=== PATIENT | male | born 1960 | race Caucasian/White ===

== ENCOUNTER 2018-09-25 15:11 | Emergency (ER) | payer MEDICAID ==
[~2018-09-25] VITALS: Ht 170.2 cm; Wt 70.0 kg
--- NOTE | 2018-09-25 15:33 | NUR ---
PT BROUGHT IN BECAUSE S/O OF 30 YEARS STATES THAT HE HAS BEEN ACTING WEIRD FOR 2 WEEKS. POOR HISTORIAN. 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 PT IS AGITATED AND CONTINUING TO TRY TO CRAWL OUT OF BED. PT FALLS DAILY. RESTRAINT VEST APPLIED FOR MEDICAL REASON TO PROTECT PT. PT NONVERBAL BASICALLY.
[2018-09-25] MEDS ORDERED: CITA20TA6 PO (15:42)
[2018-09-25] MEDS ORDERED: HALOPERIDOL 5 MG/ML ONE (15:44)
[2018-09-25] MEDS ORDERED: HALOPERIDOL 5 MG/ML IM PRN (16:00)
[2018-09-25 16:47] LABS: BASOPHILS # (AUTO) 0.03 x10^3/uL (0-0.1); BASOPHILS % (AUTO) 0 % (0-1); EOSINOPHILS # (AUTO) 0.01 x10^3/uL (0-0.4); EOSINOPHILS % (AUTO) 0 % (1-7); LYMPHOCYTES # (AUTO) 2.46 x10^3/uL (1-3.4); LYMPHOCYTES % (AUTO) 28 % (22-44); MD NO; MEAN CORPUSCULAR VOLUME 99.8 fL (81-97); MEAN PLATELET VOLUME 7.8 fL (7.4-10.4); MONOCYTES # (AUTO) 0.59 x10^3/uL (0.2-0.8); MONOCYTES % (AUTO) 7 % (2-9); NEUTROPHILS # (AUTO) 5.59 x10^3/uL (1.8-6.8); NEUTROPHILS % (AUTO) 64 % (42-75); PLATELET COUNT 148 x10^3/uL (130-400); RED BLOOD COUNT 4.01 x10^6/uL (4.38-5.82); RED CELL DISTRIBUTION WIDTH 13.1 % (9.4-14.8)
[2018-09-25 16:59] LABS: ALANINE AMINOTRANSFERASE 166 U/L (12-78); ALBUMIN 3.2 g/dL (3.4-5.0); ANION GAP 9 mmol/L (5-15); CALCIUM 8.3 mg/dL (8.5-10.1); CHLORIDE 110 mmol/L (98-107); CREATININE 0.63 mg/dL (0.7-1.3)
[2018-09-25 17:01] LABS: ALKALINE PHOSPHATASE 142 U/L (45-117); BILIRUBIN,TOTAL 0.8 mg/dL (0.2-1.0); SALICYLATE LEVEL < 1.7 mg/dL (2.8-20.0); TOTAL PROTEIN 7.4 g/dL (6.4-8.2)
[2018-09-25 17:02] LABS: ACETAMINOPHEN < 2 mcg/mL (10-30)
--- NOTE | 2018-09-25 17:29 | NUR ---
Cleaned pts bed removed soiled underpants new sheets placed, warm blankets give. Trial release from vest restraint and pt tried again crawling OOB. Pt is cooperative not kicking legs every where just rocking jerks. Pt spoke and stated he feels better. Iv established waiting admit.
[2018-09-25] MEDS ORDERED: ZIPRASIDONE 20MG CAPSULE PO PRN (18:00)
[2018-09-25] MEDS ORDERED: IBUPROFEN 600 MG TABLET PO PRN (18:00)
[2018-09-25] MEDS ORDERED: ONDANSETRON ODT 4 MG PO PRN (18:00)
--- NOTE | 2018-09-25 18:53 | NUR ---
TELE RODY ON TV TALKING WITH PT AND FAMILY. SITTER AT BS
--- NOTE | 2018-09-25 19:03 | NUR ---
DR. PATEL CALLED BACK AND HE STATES PT IS DISABLED AND NEEDS A PSYCH ADMISSON
--- NOTE | 2018-09-25 20:00 | NUR ---
PT IS OUT OF VEST RESTRAINT, COOPERATIVE SITTER WILL REMIND PT TO STAY IN BED. CHARTING COMPLETE
--- NOTE | 2018-09-25 20:24 | NUR ---
STRAIGHT CATH UA DONE SENT TO LAB. PT RESTING WATCHING TV
[2018-09-25 20:38] LABS: AMPHETAMINE SCREEN, URINE Negative (Negative); BARBITURATE SCREEN, URINE Negative (Negative); BENZODIAZEPINE SCREEN, URINE Negative (Negative); CANNABINOID SCREEN, URINE Negative (Negative); COCAINE SCREEN, URINE Negative (Negative); METHADONE SCREEN, URINE Negative (Negative); OPIATE SCREEN, URINE Negative (Negative)
--- NOTE | 2018-09-25 20:48 | NUR ---
REPORT GIVEN FROM AMIRA ARMENDARIZ
--- NOTE | 2018-09-25 20:56 | NUR ---
REPORT TO MARGARITO COLLIER
[2018-09-25 21:02] LABS: MICROSCOPIC NOT IND
[2018-09-25 21:03] LABS: CULTURE INDICATED? NO
--- NOTE | 2018-09-25 21:21 | NUR ---
tp: faxed pts packet to [facility]
--- NOTE | 2018-09-25 21:54 | NUR ---
PT RESTING IN CORREA. SITER AT DOOR. AT DOOR. NO ACUTE DISTRESS NOTED. VS STABLE. WILL CONTINUE TO MONITOR.
--- NOTE | 2018-09-25 22:19 | NUR ---
tp: serafin from [facility] called to notify that pt is declined at this time unless he is able to self pay.
--- NOTE | 2018-09-25 22:31 | NUR ---
PT MOVED TO ROOM 38. SITTER AT DOOR. PT'S VS ARE STABLE. 3 BAGS OF BELONGINGS LOCKED UP. GIRLFRIEND TOOK PT'S HOME MEDICATIONS FOR HOME. PT'S WHEELCHAIR IN ROOM. WILL CONTINUE TO MONITOR.
--- NOTE | 2018-09-25 23:16 | NUR ---
pt resting in room. vs stable. sitter at door. no acute distress noted. will continue to monitor.
--- NOTE | 2018-09-25 23:23 | NUR ---
pt drank one cup of orange juice. Pt asked if he wants more juice or something to eat or drink. Pt replied, "No that is okay." sitter at door. no acute distress noted. girlfriend went home. call light in place. will continue to monitor.
--- NOTE | 2018-09-26 00:22 | NUR ---
TASK RN: PT SITTING UP IN HOSPITAL BED, NAD NOTED. BP/SPO2 MONITORING IN PLACE. SITTER AT DOORWAY FOR OBS.
--- NOTE | 2018-09-26 00:30 | NUR ---
REPORT GIVEN TO AMIRA LINDQUIST
--- NOTE | 2018-09-26 00:52 | NUR ---
PT RESTING ON GURNEY WATCHING TV, NAD, ROOM SECURED, SITTER AT DOORWAY FOR CONTINOUS MONITORING.
--- NOTE | 2018-09-26 02:15 | NUR ---
PT RESTING IN BED WATCHING TV, DENIES NEEDS AT THIS TIME, DESIREE ODELL REMAINS AT DOORWAY FOR CONTINOUS MONITORING
--- NOTE | 2018-09-26 03:04 | NUR ---
PT SITTING UP WATCHING TV, PT CHECKED FOR INCONTINENCE, PT REMAINS DRY. DENIES FURTHER NEEDS, SITTER AT DOORWAY FOR MONITORING
--- NOTE | 2018-09-26 04:08 | NUR ---
PT RESTING IN BED WATCHING TV, DENIES NEEDS AT THIS TIME, DESIREE ODELL REMAINS AT DOORWAY FOR CONTINOUS MONITORING
--- NOTE | 2018-09-26 05:01 | NUR ---
PT SITTING UP WATCHING TV, PT CHECKED FOR INCONTINENCE, PT REMAINS DRY. DENIES NEEDS, SITTER AT DOORWAY FOR MONITORING
[2018-09-26 05:22] LABS: INTERNATIONAL NORMALIZED RATIO 1.14 (0.93-1.1)
[2018-09-26 05:26] LABS: ALBUMIN 3.3 g/dL (3.4-5.0); ANION GAP 12 mmol/L (5-15); CALCIUM 8.7 mg/dL (8.5-10.1); CHLORIDE 110 mmol/L (98-107)
[2018-09-26 05:28] LABS: ALANINE AMINOTRANSFERASE 183 U/L (12-78); ALKALINE PHOSPHATASE 139 U/L (45-117); CREATININE 0.57 mg/dL (0.7-1.3); TOTAL PROTEIN 7.8 g/dL (6.4-8.2)
--- NOTE | 2018-09-26 06:00 | NUR ---
PT SITTING UP WATCHING TV, NAD, DENIES NEEDS, SITTER REMAINS AT DOORWAY FOR CONTINOUS MONITORING.
--- NOTE | 2018-09-26 07:06 | NUR ---
REPORT GIVEN TO AMIRA ROBERTSON
--- NOTE | 2018-09-26 07:13 | NUR ---
REPORT FROM AMEENA COLLIER
--- NOTE | 2018-09-26 07:30 | NUR ---
PT RESTING IN BED. WHEELCHAIR IN ROOM. PT ON BP AND O2 MONITORING. PT IN HOSPITAL BED. SITTER IN HALLWAY.
--- NOTE | 2018-09-26 07:36 | NUR ---
PT WATCHING TV AT THIS TIME. PT CHECKED AND PADS ARE DRY AT THIS TIME.
[2018-09-26] MEDS ORDERED: CITALOPRAM 20 MG TABLET ONE (08:05)
[2018-09-26] MEDS ORDERED: CITALOPRAM 20 MG TABLET PO SCH (09:00)
--- NOTE | 2018-09-26 09:00 | NUR ---
SPOKE WITH LEILA AT [facility]. DUE TO PT REFUSING TO SPEAK OR ANSWER ALL QUESTIONS WE ARE UNABLE TO DETERMINE IF HE CAN SELF-PAY. PER LEILA AT THIS TIME THEY WILL REMOVE HIM AND WE WERE INFORMED THAT IF THERE ARE ANY CHANGES TO SEND THE REFERAL AGAIN.
--- NOTE | 2018-09-26 09:48 | NUR ---
PT IN BED AT THIS TIME. RESPS EVEN AND UNLABORED. BREAKFAST TRAY COMSUMED IN ITS ENTIRITY.
--- NOTE | 2018-09-26 10:26 | NUR ---
PT AWAKE IN BED. STILL NOT REPONDING TO ANY QUESTIONS. RESPS EVEN AND UNLABORED. PT FOUND TO HAVE URINATED THE BED. ABSORBANT PADS AND SHEETS CHANGED AT THIS TIME.
--- NOTE | 2018-09-26 10:49 | NUR ---
REPORT RECEIVED FROM AILYN COLLIER, ASSUMING CARE OF THIS PT. PT CURRENTLY RESTING IN ROOM WITH EYES CLOSED. ELEN ODELL. SITTER IN [place] FOR CONTINUOUS MONITORING.
--- NOTE | 2018-09-26 12:12 | NUR ---
SPOKE WITH 3E. DR Morrison RECOMMENDS TO BE MONITORED ON A MEDICAL AND REASSESSED TOMORROW. CONCERNED WITH THE CONFUSION.
[2018-09-26 12:37] VITALS: BP 96/63
--- NOTE | 2018-09-26 12:38 | NUR ---
PT RESTING IN BED WITH LIGHTS DIMMED. VSS. NO DISTRESS NOTED.
--- NOTE | 2018-09-26 12:40 | NUR ---
SPOKE WITH HOSPITALIST IN REGARDS TO RECOMMENDATION FOR MEDICAL ADMIT, MD STATES ITS ACUTE PSYCHOSIS AND THERE IS NO NEED TO ADMIT THIS PT TO MEDICAL, TESTS DONE TO R/O OTHER ISSUES. THROUGHPUT TO BE NOTIFIED
--- NOTE | 2018-09-26 12:46 | NUR ---
3E CONTACTED AND UPDATED ON HOSPITALIST ADMIT POSITION, AWAITING CALL BACK AT THIS TIME WITH BED ASSIGNMENT
--- NOTE | 2018-09-26 12:49 | NUR ---
PT TO MRI.
--- NOTE | 2018-09-26 13:35 | NUR ---
PT BACK FROM MRI. CURRENTLY EATING LUNCH DIET TRAY. PT STATES NO NEEDS AT THIS TIME. ELEN ODELL. SITTER IN [place] FOR CONTINUOUS MONITORING. WILL CONTINUE TO MONITOR
--- NOTE | 2018-09-26 14:36 | NUR ---
MRI CALLED TO F/U ON DELAY IN READ, TECH STATES WILL PUSH THROUGH TO BE READ NOW
--- NOTE | 2018-09-26 14:41 | NUR ---
PT RESTING IN ROOM. PT ATE ENTIRE DIET TRAY AND DRANK ALL FLUIDS. VSS. NO NEEDS AT THIS TIME.
--- NOTE | 2018-09-26 15:55 | NUR ---
PT RESTING ON BED. RR EVEN AND UNLABORED. PT IS CALM AND COOPERATIVE ATT. DENIES NEEDS OR PAIN ATT. PT'S ROOM SECURED. SITTER OUTSIDE OF ROOM FOR SAFETY
--- NOTE | 2018-09-26 17:57 | NUR ---
report given to sen lemos
== END 2018-09-27 02:56 | disposition other institution (70) ==
LOC: ED 16:24 → UNDOADMOB 17:34 → EDIP 17:34 → ED 09-27 02:56
DX: F23 Brief psychotic disorder (principal); R74.0 Nonspecific elevation of levels of transaminase and lactic acid dehydrogenase [LDH]; F31.9 Bipolar disorder, unspecified
CPT/HCPCS: 36415; 70551; 76700; 80053; 80074; 80307; 80329; 81003; 82140; 82607; 84443; 85025; 85610; 87521; 96372; 99284; J1630; G0480

== ENCOUNTER 2018-09-26 17:42 | Inpatient (IN) | payer MEDICAID ==
[~2018-09-26] VITALS: Ht 177.8 cm; Wt 61.4 kg
[~2018-09-26 17:42] MED LIST: CITA20TA6 PO
[2018-09-26] MEDS ORDERED: ONDANSETRON ODT 4 MG PO PRN (18:00)
[2018-09-26] MEDS ORDERED: BISACODYL 10 MG SUPP PR PRN (18:00)
[2018-09-26] MEDS ORDERED: POLYETHYLENE GLYCOL 17 GM PACKET PO PRN (18:00)
[2018-09-26] MEDS ORDERED: DOCUSATE 100 MG CAPSULE PO PRN (18:00)
[2018-09-26] MEDS ORDERED: ACETAMINOPHEN 325 MG TABLET PO PRN ×2 (18:00→20:00)
[2018-09-26 18:03] VITALS: BP 119/79
[2018-09-26] MEDS ORDERED: PLEASE ENTER HEIGHT AND WEIGHT MC SCH (18:30)
[2018-09-26 18:42] VITALS: BP 119/79
[2018-09-26 20:38] VITALS: BP 111/73
[2018-09-27 07:44] VITALS: BP 102/72
[2018-09-27] MEDS: SENNA/DOCUSATE TABLET PO SCH (08:30)
[2018-09-27 09:11] LABS: BASOPHILS # (AUTO) 0.06 x10^3/uL (0-0.1); BASOPHILS % (AUTO) 1 % (0-1); EOSINOPHILS # (AUTO) 0.09 x10^3/uL (0-0.4); EOSINOPHILS % (AUTO) 1 % (1-7); LYMPHOCYTES # (AUTO) 1.83 x10^3/uL (1-3.4); LYMPHOCYTES % (AUTO) 29 % (22-44); MD NO; MEAN CORPUSCULAR HEMOGLOBIN 34.4 pg (27.5-34.5); MEAN CORPUSCULAR HGB CONC 34.1 g/dL (33.2-36.2); MEAN CORPUSCULAR VOLUME 100.9 fL (81-97); MEAN PLATELET VOLUME 7.6 fL (7.4-10.4); MONOCYTES # (AUTO) 0.61 x10^3/uL (0.2-0.8); MONOCYTES % (AUTO) 10 % (2-9); NEUTROPHILS # (AUTO) 3.69 x10^3/uL (1.8-6.8); NEUTROPHILS % (AUTO) 59 % (42-75); PLATELET COUNT 165 x10^3/uL (130-400); RED BLOOD COUNT 4.67 x10^6/uL (4.38-5.82); RED CELL DISTRIBUTION WIDTH 13.6 % (9.4-14.8)
[2018-09-27 09:15] LABS: CHOL/HDL RATIO 2.7; LDL/HDL RATIO 1.4 (0.5-3.0)
[2018-09-27 09:46] LABS: HCT (SEDRATE) 47.2 % (39.2-51.8)
[2018-09-27 19:30] VITALS: BP 104/70
[2018-09-28 07:53] VITALS: BP 101/61
[2018-09-28] MEDS: SENNA/DOCUSATE TABLET PO SCH (08:43)
[2018-09-28 19:29] VITALS: BP 105/72
[2018-09-28] MEDS: ZIPRASIDONE 20MG CAPSULE PO PRN (20:10)
[2018-09-29] MEDS ORDERED: LORazepam 1MG TABLET PO ONE
[2018-09-29] MEDS ORDERED: MIRTAZAPINE 15 MG TABLET PO PRN (01:30)
[2018-09-29 07:51] VITALS: BP 95/61
[2018-09-29] MEDS: SENNA/DOCUSATE TABLET PO SCH (09:00)
[2018-09-29 19:29] VITALS: BP 91/58
[2018-09-30 07:55] VITALS: BP 103/65
[2018-09-30] MEDS: SENNA/DOCUSATE TABLET PO SCH (09:46)
[2018-09-30] MEDS: ZIPRASIDONE 20MG CAPSULE PO PRN (12:43)
[2018-09-30] MEDS ORDERED: DIAZEPAM 5 MG TABLET ONE (15:29)
[2018-09-30] MEDS ORDERED: DIAZEPAM 5 MG TABLET PO ONE (15:30)
[2018-09-30 19:42] VITALS: BP 112/75
[2018-09-30] MEDS: TRAZODONE 50MG TABLET PO PRN (22:14)
[2018-09-30] MEDS ORDERED: TRAZODONE 50MG TABLET PO PRN (22:30)
[2018-10-01] MEDS: TRAZODONE 50MG TABLET PO PRN ×2 (00:26→21:19)
[2018-10-01 07:59] VITALS: BP 90/57
[2018-10-01] MEDS: BUPROPION SR 100 MG TABLET PO SCH (08:49)
[2018-10-01] MEDS: SENNA/DOCUSATE TABLET PO SCH (08:49)
[2018-10-01 19:29] VITALS: BP 103/69
[2018-10-02 07:30] VITALS: BP 89/50
[2018-10-02] MEDS: BUPROPION SR 100 MG TABLET PO SCH (08:33)
[2018-10-02] MEDS: SENNA/DOCUSATE TABLET PO SCH (08:33)
[2018-10-02 19:51] VITALS: BP 83/56
[2018-10-02] MEDS: TRAZODONE 50MG TABLET PO PRN (20:27)
[2018-10-03 07:38] VITALS: BP 93/57
[2018-10-03] MEDS: BUPROPION SR 100 MG TABLET PO SCH (10:24)
[2018-10-03] MEDS: SENNA/DOCUSATE TABLET PO SCH (10:24)
[2018-10-03 20:00] VITALS: BP 91/57
[2018-10-03] MEDS: TRAZODONE 50MG TABLET PO PRN (20:21)
[2018-10-03 23:19] VITALS: BP 145/95
[2018-10-04 08:02] VITALS: BP 96/64
[2018-10-04] MEDS: SENNA/DOCUSATE TABLET PO SCH (09:32)
[2018-10-04] MEDS: BUPROPION SR 100 MG TABLET PO SCH (09:32)
[2018-10-04 19:38] VITALS: BP 83/50
[2018-10-04 22:46] VITALS: BP 100/75
[2018-10-04] MEDS: TRAZODONE 50MG TABLET PO PRN (22:51)
[2018-10-05 08:00] VITALS: BP 90/53
[2018-10-05] MEDS: SENNA/DOCUSATE TABLET PO SCH (09:00)
[2018-10-05] MEDS: BUPROPION SR 100 MG TABLET PO SCH (09:06)
[2018-10-05 19:45] VITALS: BP 91/57
[2018-10-05] MEDS: TRAZODONE 50MG TABLET PO PRN (21:28)
[2018-10-06 07:30] VITALS: BP 91/60
[2018-10-06] MEDS ORDERED: MIRT15TA4 PO (08:46)
[2018-10-06] MEDS ORDERED: BUPR-173 PO (08:46)
[2018-10-06] MEDS: SENNA/DOCUSATE TABLET PO SCH (09:00)
[2018-10-06] MEDS: BUPROPION SR 100 MG TABLET PO SCH (09:26)
== END 2018-10-06 11:45 | disposition home or self-care (01) | DRG 885 ==
LOC: 3E 18:06
PROVIDERS: ADMIT Psychiatry & Neurology Psychosomatic Medicine; ATTEND Psychiatry & Neurology Psychosomatic Medicine
DX: F33.1 Major depressive disorder, recurrent, moderate (principal); F15.20 Other stimulant dependence, uncomplicated; F31.9 Bipolar disorder, unspecified; F20.9 Schizophrenia, unspecified; Z85.828 Personal history of other malignant neoplasm of skin; F19.959 Other psychoactive substance use, unspecified with psychoactive substance-induced psychotic disorder, unspecified
CPT/HCPCS: 36415; 71045; 80061; 85025; 85651; 86592; 93005; 92523-GN

== ENCOUNTER 2018-11-04 17:42 | Emergency (ER) | payer MEDICAID ==
[~2018-11-04] VITALS: Ht 177.8 cm; Wt 62.7 kg
[~2018-11-04 17:42] MED LIST changes: +BUPR-173 PO; +MIRT15TA4 PO
[2018-11-04 18:00] VITALS: BP 116/74
--- NOTE | 2018-11-04 19:00 | NUR ---
DC EDUCATION PROVIDED, PT DEMONSTRATES UNDERSTANDING. PT WHEELED TO DC WITH RN AND FRIEND. FRIEND TO TRANSPORT PT HOME
== END 2018-11-04 19:02 | disposition home or self-care (01) ==
LOC: ED 17:59
DX: F31.9 Bipolar disorder, unspecified (principal); F20.9 Schizophrenia, unspecified; F29 Unspecified psychosis not due to a substance or known physiological condition
CPT/HCPCS: 99283

== ENCOUNTER 2018-11-26 00:20 | Emergency (ER) | payer MEDICAID ==
[~2018-11-26] VITALS: Ht 177.8 cm; Wt 70.0 kg
--- NOTE | 2018-11-26 00:23 | NUR ---
Dr. Munoz at bedside to evaluate pt.
[2018-11-26] MEDS ORDERED: ZIPRASIDONE 20 MG INJ IM ONE ×2 (00:30→00:48)
--- NOTE | 2018-11-26 00:38 | NUR ---
Lab at bedside.
--- NOTE | 2018-11-26 00:44 | NUR ---
Pt ambulated to bathroom with urine cup, sample requested.
[2018-11-26 00:47] LABS: BASOPHILS # (AUTO) 0.02 x10^3/uL (0-0.1); BASOPHILS % (AUTO) 0 % (0-1); EOSINOPHILS # (AUTO) 0.06 x10^3/uL (0-0.4); EOSINOPHILS % (AUTO) 1 % (1-7); LYMPHOCYTES # (AUTO) 1.66 x10^3/uL (1-3.4); LYMPHOCYTES % (AUTO) 30 % (22-44); MD NO; MEAN CORPUSCULAR HEMOGLOBIN 34.3 pg (27.5-34.5); MEAN CORPUSCULAR HGB CONC 34.7 g/dL (33.2-36.2); MEAN CORPUSCULAR VOLUME 98.7 fL (81-97); MEAN PLATELET VOLUME 7.4 fL (7.4-10.4); MONOCYTES % (AUTO) 11 % (2-9); NEUTROPHILS # (AUTO) 3.13 x10^3/uL (1.8-6.8); NEUTROPHILS % (AUTO) 57 % (42-75); PLATELET COUNT 174 x10^3/uL (130-400); RED BLOOD COUNT 4.33 x10^6/uL (4.38-5.82); RED CELL DISTRIBUTION WIDTH 13.4 % (9.4-14.8)
--- NOTE | 2018-11-26 00:56 | NUR ---
task rn: pt. medicated per eMAR. pt. aware of need for UA.
[2018-11-26 00:59] LABS: ALANINE AMINOTRANSFERASE 190 U/L (12-78); ALBUMIN 3.1 g/dL (3.4-5.0); ANION GAP 9 mmol/L (5-15); CALCIUM 8.3 mg/dL (8.5-10.1); CHLORIDE 110 mmol/L (98-107); CREATININE 0.85 mg/dL (0.7-1.3)
[2018-11-26 01:01] LABS: ALKALINE PHOSPHATASE 156 U/L (45-117); BILIRUBIN,TOTAL 0.6 mg/dL (0.2-1.0); SALICYLATE LEVEL < 1.7 mg/dL (2.8-20.0); TOTAL PROTEIN 7.5 g/dL (6.4-8.2)
[2018-11-26 01:02] LABS: ACETAMINOPHEN < 2 mcg/mL (10-30)
--- NOTE | 2018-11-26 01:35 | NUR ---
Pt states unable to provide urine sample at this time.
--- NOTE | 2018-11-26 02:07 | NUR ---
Pt ambulated every few minutes in room, stating "I'm trying to pee." Urinal and sample cup in room, pt unable to produce sample. Dr. Munoz made aware, pt with no previous positive UDS, pt denies any recent drug use. Plan to telepsych pt.
--- NOTE | 2018-11-26 03:06 | NUR ---
THROUGHPUT: TELEPSYCH CONTACTED FOR CONSULT. TELE ROBOT IN ROOM.
--- NOTE | 2018-11-26 03:24 | NUR ---
PT STANDING IN ROOM. POC DISCUSSED. PT DENIES CURRENT NEEDS. AWAITING TELEPSYCH
--- NOTE | 2018-11-26 06:02 | NUR ---
Referral packet received, met with pt. Attempting to get urine sample. Fluids given. Pt unable to give accurate hx. In constant movement, marching in place holding onto counter. Akathesia-like movements. Tele-psyche completed with recommendations for inpt psyche hospitalization for being gravely disabled. Will contact psychiatrist for admit to 3E after urine tox screen obtained.
--- NOTE | 2018-11-26 06:05 | NUR ---
THROUGHPUT: REFERRAL PACKET FAXED TO [facility]. CONFIRMED FAX RECEIVED AT ALL FACILITIES.
--- NOTE | 2018-11-26 06:11 | NUR ---
POC DISCUSSED. VITALS UPDATED. POC DISCUSSED. 3E RN HAS SEEN PT. PT AWARE UA IS NEEDED. PT AGREES TO TRY BUT THEN FAILS TO DO SO. PT IS OTHERWISE COOPERATIVE. PT DENIES FURTHER NEEDS AT THIS TIME.
--- NOTE | 2018-11-26 06:57 | NUR ---
received report from Uriah. pt calmly laying on kanika sleeping, NAD with equal cgest rise/fall, no needs at this time, pt remains in safe environment, sitter in view. Addendum: 11/26/18 at 0806 by JOHANN pt quietly standing in room rocking side to side, responds to yes/no questions, NAD, no needs at this time, sitter in view.
--- NOTE | 2018-11-26 08:06 | NUR ---
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 pt given po fluids, will continue to encourage void for UA sample.
[2018-11-26 08:12] VITALS: BP 116/57
--- NOTE | 2018-11-26 09:02 | NUR ---
pt quietly standing in room rocking side to side, occas lays on gurney for brief amt of time, responds to yes/no questions, NAD, no needs at this time, at BS, sitter in view.
--- NOTE | 2018-11-26 09:23 | NUR ---
Break RN note: Pt given breakfast tray with SI precautions. Socks provided to pt per request.
--- NOTE | 2018-11-26 10:01 | NUR ---
pt continues to quietly standing in room rocking side to side, occas lays on gurney for brief amt of time, responds to yes/no questions, NAD, no needs at this time, at BS, sitter in view. report given to Zoltan COLLIER.
[2018-11-26 10:55] LABS: AMPHETAMINE SCREEN, URINE Negative (Negative); BARBITURATE SCREEN, URINE Negative (Negative); BENZODIAZEPINE SCREEN, URINE Negative (Negative); CANNABINOID SCREEN, URINE Negative (Negative); COCAINE SCREEN, URINE Negative (Negative); METHADONE SCREEN, URINE Negative (Negative); OPIATE SCREEN, URINE Negative (Negative)
--- NOTE | 2018-11-26 14:15 | NUR ---
pt resting in bed. luch completely consumed. no wants or needs at this time.
== END 2018-11-28 11:11 ==
LOC: ED 02:28 → UNDOADMOB 04:52 → EDIP 04:52 → ED 11-28 11:11
DX: F06.2 Psychotic disorder with delusions due to known physiological condition (principal); F31.73 Bipolar disorder, in partial remission, most recent episode manic; F20.9 Schizophrenia, unspecified
CPT/HCPCS: 36415; 80053; 80307; 80329; 85025; 96372; 99285; J3486; G0480

== ENCOUNTER 2018-11-26 14:16 | Inpatient (IN) | payer MEDICAID ==
[~2018-11-26] VITALS: Ht 177.8 cm; Wt 59.3 kg
[2018-11-26] MEDS ORDERED: DOCUSATE 100 MG CAPSULE PO PRN (15:00)
[2018-11-26] MEDS ORDERED: ONDANSETRON ODT 4 MG PO PRN (15:00)
[2018-11-26] MEDS ORDERED: BISACODYL 10 MG SUPP PR PRN (15:00)
[2018-11-26] MEDS ORDERED: POLYETHYLENE GLYCOL 17 GM PACKET PO PRN (15:00)
[2018-11-26] MEDS ORDERED: ACETAMINOPHEN 325 MG TABLET PO PRN (15:00)
[2018-11-26 17:56] VITALS: BP 101/66
[2018-11-26 18:13] VITALS: BP 101/66
[2018-11-26] MEDS: RISPERIDONE 1 MG TABLET PO SCH (20:30)
[2018-11-26] MEDS: MIRTAZAPINE 15 MG TABLET PO SCH (20:30)
[2018-11-27 06:02] LABS: ALBUMIN 2.6 g/dL (3.4-5.0); ANION GAP 4 mmol/L (5-15); CALCIUM 7.9 mg/dL (8.5-10.1); CHLORIDE 111 mmol/L (98-107)
[2018-11-27 06:30] LABS: MEAN CORPUSCULAR HEMOGLOBIN 34.3 pg (27.5-34.5); MEAN CORPUSCULAR HGB CONC 34.7 g/dL (33.2-36.2); MEAN CORPUSCULAR VOLUME 98.8 fL (81-97); MEAN PLATELET VOLUME 7.6 fL (7.4-10.4); PLATELET COUNT 136 x10^3/uL (130-400); RED BLOOD COUNT 3.91 x10^6/uL (4.38-5.82); RED CELL DISTRIBUTION WIDTH 13.8 % (9.4-14.8)
[2018-11-27 06:31] LABS: HCT (SEDRATE) 38.6 % (39.2-51.8)
[2018-11-27 06:32] LABS: ALANINE AMINOTRANSFERASE 151 U/L (12-78); ALKALINE PHOSPHATASE 209 U/L (45-117); BILIRUBIN,TOTAL 0.3 mg/dL (0.2-1.0); CHOL/HDL RATIO 2.8; CHOLESTEROL, TOTAL 96 mg/dL (140-239); CREATININE 0.73 mg/dL (0.7-1.3); HDL CHOL % 35 % (26-37); HDL CHOLESTEROL (DIRECT) 34 mg/dL (40-60); LDL CHOLESTEROL,CALCULATED 50 mg/dL (54-169); LDL/HDL RATIO 1.5 (0.5-3.0); T4 (THYROXINE) 13.6 mcg/dL (4.5-12.1); THYROID STIMULATING HORMONE 0.771 mIU/L (0.358-3.740); TOTAL PROTEIN 6.8 g/dL (6.4-8.2); TRIGLYCERIDES 61 mg/dL (50-200); VLDL CHOLESTEROL 12 mg/dL (0-25)
[2018-11-27 06:39] LABS: BASOPHILS # (AUTO) 0.02 x10^3/uL (0-0.1); BASOPHILS % (AUTO) 0 % (0-1); EOSINOPHILS # (AUTO) 0.18 x10^3/uL (0-0.4); EOSINOPHILS % (AUTO) 3 % (1-7); LYMPHOCYTES # (AUTO) 1.87 x10^3/uL (1-3.4); LYMPHOCYTES % (AUTO) 32 % (22-44); MD SCAN; MONOCYTES % (AUTO) 10 % (2-9); NEUTROPHILS # (AUTO) 3.22 x10^3/uL (1.8-6.8); NEUTROPHILS % (AUTO) 55 % (42-75)
[2018-11-27 07:25] VITALS: BP 100/63
[2018-11-27] MEDS: SENNA/DOCUSATE TABLET PO SCH (09:00)
[2018-11-27] MEDS: LEVOTHYROXINE 25 MCG TABLET PO SCH (09:52)
[2018-11-27] MEDS: RISPERIDONE 1 MG TABLET PO SCH ×2 (09:52→19:57)
[2018-11-27] MEDS ORDERED: SODIUM CHLORIDE 0.9% 1,000 ML IV SCH (11:30)
[2018-11-27] MEDS ORDERED: ACETAMINOPHEN 325 MG TABLET ONE (11:36)
[2018-11-27 12:16] LABS: MICROSCOPIC NOT IND
[2018-11-27 12:22] LABS: CULTURE INDICATED? NO
[2018-11-27] MEDS ORDERED: ACETAMINOPHEN 325 MG TABLET PO PRN (13:30)
[2018-11-27 13:43] VITALS: BP 92/54
[2018-11-27 15:27] VITALS: BP 99/65
[2018-11-27 19:50] VITALS: BP 101/59
[2018-11-27] MEDS: SODIUM CHLORIDE FLUSH 10ML SYR IVF SCH (19:53)
[2018-11-27] MEDS: MIRTAZAPINE 15 MG TABLET PO SCH (19:57)
[2018-11-28 08:11] VITALS: BP 104/70
[2018-11-28] MEDS: LEVOTHYROXINE 25 MCG TABLET PO SCH (08:16)
[2018-11-28] MEDS: RISPERIDONE 1 MG TABLET PO SCH ×2 (08:17→20:43)
[2018-11-28] MEDS: SENNA/DOCUSATE TABLET PO SCH (08:17)
[2018-11-28 08:31] LABS: BASOPHILS # (AUTO) 0.05 x10^3/uL (0-0.1); BASOPHILS % (AUTO) 1 % (0-1); EOSINOPHILS # (AUTO) 0.29 x10^3/uL (0-0.4); EOSINOPHILS % (AUTO) 6 % (1-7); LYMPHOCYTES % (AUTO) 38 % (22-44); MD NO; MEAN CORPUSCULAR HEMOGLOBIN 33.2 pg (27.5-34.5); MEAN CORPUSCULAR HGB CONC 33.6 g/dL (33.2-36.2); MEAN CORPUSCULAR VOLUME 98.9 fL (81-97); MEAN PLATELET VOLUME 7.6 fL (7.4-10.4); MONOCYTES # (AUTO) 0.46 x10^3/uL (0.2-0.8); MONOCYTES % (AUTO) 9 % (2-9); NEUTROPHILS # (AUTO) 2.49 x10^3/uL (1.8-6.8); NEUTROPHILS % (AUTO) 47 % (42-75); PLATELET COUNT 177 x10^3/uL (130-400); RED BLOOD COUNT 4.44 x10^6/uL (4.38-5.82); RED CELL DISTRIBUTION WIDTH 13.7 % (9.4-14.8)
[2018-11-28 08:37] LABS: CALCIUM 8.4 mg/dL (8.5-10.1); CHLORIDE 112 mmol/L (98-107); CREATININE 0.66 mg/dL (0.7-1.3)
[2018-11-28 08:44] LABS: ANION GAP 4 mmol/L (5-15)
[2018-11-28] MEDS: SODIUM CHLORIDE FLUSH 10ML SYR IVF SCH ×2 (09:00→20:43)
[2018-11-28 11:50] VITALS: BP 90/53
[2018-11-28] MEDS: SODIUM CHLORIDE 0.9% 500 ML IV SCH ×2 (17:00→19:30)
[2018-11-28 19:32] VITALS: BP 93/58
[2018-11-28] MEDS: MIRTAZAPINE 15 MG TABLET PO SCH (20:42)
[2018-11-29] MEDS: SODIUM CHLORIDE 0.9% 1,000 ML IV SCH ×2 (01:05→12:00)
[2018-11-29] MEDS: LEVOTHYROXINE 25 MCG TABLET PO SCH (06:32)
[2018-11-29 07:41] VITALS: BP 119/81
[2018-11-29] MEDS: RISPERIDONE 1 MG TABLET PO SCH ×2 (08:52→20:05)
[2018-11-29] MEDS: SODIUM CHLORIDE FLUSH 10ML SYR IVF SCH ×2 (08:52→20:07)
[2018-11-29] MEDS: SENNA/DOCUSATE TABLET PO SCH (08:53)
[2018-11-29] MEDS: SODIUM CHLORIDE 0.9% 500 ML IV SCH (11:30)
[2018-11-29 12:40] VITALS: BP 116/76
[2018-11-29 19:25] VITALS: BP 111/72
[2018-11-29] MEDS: MIRTAZAPINE 15 MG TABLET PO SCH (20:05)
[2018-11-30] MEDS: LEVOTHYROXINE 25 MCG TABLET PO SCH (05:30)
[2018-11-30 07:57] VITALS: BP 99/66
[2018-11-30] MEDS: RISPERIDONE 1 MG TABLET PO SCH ×2 (08:26→20:31)
[2018-11-30] MEDS: SODIUM CHLORIDE FLUSH 10ML SYR IVF SCH ×2 (08:27→21:00)
[2018-11-30] MEDS: SENNA/DOCUSATE TABLET PO SCH (08:27)
[2018-11-30 20:00] VITALS: BP 105/63
[2018-11-30] MEDS: MIRTAZAPINE 15 MG TABLET PO SCH (20:31)
[2018-12-01] MEDS: LEVOTHYROXINE 25 MCG TABLET PO SCH (05:29)
[2018-12-01 07:50] VITALS: BP_SYST 107; BP_SYST 129; BP_DIAS 70; BP_DIAS 84
[2018-12-01] MEDS: SODIUM CHLORIDE FLUSH 10ML SYR IVF SCH (09:00)
[2018-12-01] MEDS: RISPERIDONE 1 MG TABLET PO SCH ×2 (09:41→20:54)
[2018-12-01] MEDS: SENNA/DOCUSATE TABLET PO SCH (09:41)
[2018-12-01] MEDS: LORazepam 1MG TABLET PO PRN (09:41)
[2018-12-01 11:36] VITALS: BP 110/74
[2018-12-01 20:09] VITALS: BP 102/70
[2018-12-01] MEDS: HYDROXYZINE PAMOATE 50MG CAP PO SCH (20:54)
[2018-12-01] MEDS: MIRTAZAPINE 15 MG TABLET PO SCH (20:54)
[2018-12-02] MEDS: LEVOTHYROXINE 25 MCG TABLET PO SCH (06:08)
[2018-12-02 07:35] VITALS: BP 114/75
[2018-12-02] MEDS: SENNA/DOCUSATE TABLET PO SCH (09:38)
[2018-12-02] MEDS: RISPERIDONE 1 MG TABLET PO SCH ×2 (09:39→20:43)
[2018-12-02 19:48] VITALS: BP 105/70
[2018-12-02] MEDS: MIRTAZAPINE 15 MG TABLET PO SCH (20:43)
[2018-12-02] MEDS: LORazepam 1MG TABLET PO PRN (20:43)
[2018-12-02] MEDS: HYDROXYZINE PAMOATE 50MG CAP PO SCH (20:43)
[2018-12-03 01:25] VITALS: BP 102/68
[2018-12-03 07:31] VITALS: BP 98/65
[2018-12-03] MEDS: LEVOTHYROXINE 25 MCG TABLET PO SCH (08:02)
[2018-12-03] MEDS: RISPERIDONE 1 MG TABLET PO SCH ×2 (08:04→20:33)
[2018-12-03] MEDS: SENNA/DOCUSATE TABLET PO SCH (09:00)
[2018-12-03 19:48] VITALS: BP 101/71
[2018-12-03] MEDS: HYDROXYZINE PAMOATE 50MG CAP PO SCH (20:33)
[2018-12-03] MEDS: MIRTAZAPINE 15 MG TABLET PO SCH (20:33)
[2018-12-03] MEDS: LORazepam 1MG TABLET PO PRN (20:33)
[2018-12-04 07:38] VITALS: BP 104/70
[2018-12-04] MEDS: RISPERIDONE 1 MG TABLET PO SCH ×2 (08:04→20:26)
[2018-12-04] MEDS: LEVOTHYROXINE 25 MCG TABLET PO SCH (08:04)
[2018-12-04] MEDS: SENNA/DOCUSATE TABLET PO SCH (08:04)
[2018-12-04 19:52] VITALS: BP 104/75
[2018-12-04] MEDS: MIRTAZAPINE 15 MG TABLET PO SCH (20:26)
[2018-12-04] MEDS: HYDROXYZINE PAMOATE 50MG CAP PO SCH (20:26)
[2018-12-05] MEDS: FAMOTIDINE 20 MG TABLET PO SCH ×3 (01:03→20:37)
[2018-12-05] MEDS: LEVOTHYROXINE 25 MCG TABLET PO SCH (05:32)
[2018-12-05 07:28] VITALS: BP 106/73
[2018-12-05] MEDS: RISPERIDONE 1 MG TABLET PO SCH ×2 (08:22→20:37)
[2018-12-05] MEDS: SENNA/DOCUSATE TABLET PO SCH (09:00)
[2018-12-05 19:57] VITALS: BP 94/60
[2018-12-05] MEDS: MIRTAZAPINE 15 MG TABLET PO SCH (20:37)
[2018-12-05] MEDS: HYDROXYZINE PAMOATE 50MG CAP PO SCH (20:37)
[2018-12-06] MEDS: LEVOTHYROXINE 25 MCG TABLET PO SCH (05:40)
[2018-12-06 07:50] VITALS: BP 113/73
[2018-12-06] MEDS: RISPERIDONE 1 MG TABLET PO SCH ×2 (08:39→20:16)
[2018-12-06] MEDS: FAMOTIDINE 20 MG TABLET PO SCH ×2 (08:39→20:16)
[2018-12-06] MEDS: SENNA/DOCUSATE TABLET PO SCH (08:40)
[2018-12-06 20:00] VITALS: BP 97/62
[2018-12-06] MEDS: MIRTAZAPINE 15 MG TABLET PO SCH (20:16)
[2018-12-06] MEDS: HYDROXYZINE PAMOATE 50MG CAP PO SCH (20:16)
[2018-12-07] MEDS: LEVOTHYROXINE 25 MCG TABLET PO SCH (05:49)
[2018-12-07 07:28] VITALS: BP 108/72
[2018-12-07] MEDS: FAMOTIDINE 20 MG TABLET PO SCH ×2 (08:52→20:46)
[2018-12-07] MEDS: SENNA/DOCUSATE TABLET PO SCH (08:53)
[2018-12-07] MEDS: RISPERIDONE 1 MG TABLET PO SCH ×2 (08:53→20:46)
[2018-12-07 19:45] VITALS: BP 108/70
[2018-12-07] MEDS: HYDROXYZINE PAMOATE 50MG CAP PO SCH (20:47)
[2018-12-07] MEDS: MIRTAZAPINE 15 MG TABLET PO SCH (20:47)
[2018-12-08] MEDS: LEVOTHYROXINE 25 MCG TABLET PO SCH (06:28)
[2018-12-08 07:42] VITALS: BP 108/74
[2018-12-08] MEDS: FAMOTIDINE 20 MG TABLET PO SCH ×2 (08:16→20:29)
[2018-12-08] MEDS: RISPERIDONE 1 MG TABLET PO SCH ×2 (08:17→20:29)
[2018-12-08] MEDS: SENNA/DOCUSATE TABLET PO SCH (08:18)
[2018-12-08] MEDS ORDERED: RISP1TAB45 PO (15:56)
[2018-12-08] MEDS ORDERED: LEVO25TA2 PO (15:56)
[2018-12-08] MEDS ORDERED: DOCU-131 PO (15:56)
[2018-12-08] MEDS ORDERED: FAMO20TA7 PO (15:56)
[2018-12-08] MEDS ORDERED: HYDR50CA2 PO (15:56)
[2018-12-08] MEDS ORDERED: MIRT15TA4 PO (15:56)
[2018-12-08 19:47] VITALS: BP 105/71
[2018-12-08] MEDS: MIRTAZAPINE 15 MG TABLET PO SCH (20:29)
[2018-12-08] MEDS: HYDROXYZINE PAMOATE 50MG CAP PO SCH (20:29)
[2018-12-09] MEDS: LEVOTHYROXINE 25 MCG TABLET PO SCH (06:03)
[2018-12-09 07:52] VITALS: BP 107/78
[2018-12-09] MEDS: SENNA/DOCUSATE TABLET PO SCH (08:15)
[2018-12-09] MEDS: RISPERIDONE 1 MG TABLET PO SCH (08:15)
[2018-12-09] MEDS: FAMOTIDINE 20 MG TABLET PO SCH (08:15)
== END 2018-12-09 09:53 | disposition home or self-care (01) | DRG 885 ==
LOC: 3E 15:42
PROVIDERS: ADMIT Counselor Mental Health; ATTEND Counselor Mental Health
PROC: 0T9B70Z Drainage of Bladder with Drainage Device, Via Natural or Artificial Opening (ICD-10-PCS; principal; 2018-11-27)
DX: F33.3 Major depressive disorder, recurrent, severe with psychotic symptoms (principal); E87.2 Acidosis; E03.9 Hypothyroidism, unspecified; G47.00 Insomnia, unspecified; K21.9 Gastro-esophageal reflux disease without esophagitis; E86.0 Dehydration; K59.00 Constipation, unspecified; R74.0 Nonspecific elevation of levels of transaminase and lactic acid dehydrogenase [LDH]; R50.9 Fever, unspecified; Z85.828 Personal history of other malignant neoplasm of skin
CPT/HCPCS: 36415; 71046; 80048; 80053; 80061; 81003; 82140; 82607; 83605; 84145; 84436; 84443; 85025; 85651; 86592; 87040; 93005; 92522-GN; J7030; J7040

== ENCOUNTER 2020-01-09 18:44 | Emergency (ER) | payer MEDICAID ==
[~2020-01-09] VITALS: Ht 177.8 cm; Wt 57.0 kg
[~2020-01-09 18:44] MED LIST changes: +DOCU-131 PO; +FAMO20TA7 PO; +HYDR50CA2 PO; +LEVO25TA2 PO; +MIRT-34 PO; -MIRT15TA4 PO; +RISP1TAB45 PO
[2020-01-09] MEDS ORDERED: LORazepam 2 MG/ML, 1ML IVPush ONE (19:00)
[2020-01-09] MEDS ORDERED: SODIUM CHLORIDE FLUSH 10ML SYR IVF ONE (19:00)
[2020-01-09] MEDS ORDERED: PLEASE ENTER HEIGHT AND WEIGHT MC SCH (19:00)
--- NOTE | 2020-01-09 19:09 | NUR ---
Pt unable to remain still for exam, Pt continuously spasms.
[2020-01-09 19:14] LABS: BASOPHILS # (AUTO) 0.05 x10^3/uL (0-0.1); BASOPHILS % (AUTO) 1 % (0-1); EOSINOPHILS # (AUTO) 0.07 x10^3/uL (0-0.4); EOSINOPHILS % (AUTO) 1 % (1-7); LYMPHOCYTES # (AUTO) 2.41 x10^3/uL (1-3.4); LYMPHOCYTES % (AUTO) 38 % (22-44); MD NO; MEAN CORPUSCULAR HEMOGLOBIN 33.6 pg (27.5-34.5); MEAN CORPUSCULAR HGB CONC 34.2 g/dL (33.2-36.2); MEAN CORPUSCULAR VOLUME 98.3 fL (81-97); MEAN PLATELET VOLUME 7.7 fL (7.4-10.4); MONOCYTES # (AUTO) 0.74 x10^3/uL (0.2-0.8); MONOCYTES % (AUTO) 11 % (2-9); NEUTROPHILS # (AUTO) 3.16 x10^3/uL (1.8-6.8); NEUTROPHILS % (AUTO) 49 % (42-75); PLATELET COUNT 154 x10^3/uL (130-400); RED BLOOD COUNT 4.24 x10^6/uL (4.38-5.82); RED CELL DISTRIBUTION WIDTH 14.1 % (9.4-14.8)
[2020-01-09 19:23] LABS: ALANINE AMINOTRANSFERASE 174 U/L (12-78); ALBUMIN 3.3 g/dL (3.4-5.0); ANION GAP 11 mmol/L (5-15); CALCIUM 8.8 mg/dL (8.5-10.1); CHLORIDE 112 mmol/L (98-107)
[2020-01-09 19:25] LABS: ALKALINE PHOSPHATASE 130 U/L (45-117); BILIRUBIN,TOTAL 0.7 mg/dL (0.2-1.0); TOTAL PROTEIN 7.7 g/dL (6.4-8.2)
[2020-01-09 19:26] LABS: SALICYLATE LEVEL < 1.7 mg/dL (2.8-20.0)
[2020-01-09] MEDS ORDERED: LORazepam 2 MG/ML, 1ML ONE (19:53)
--- NOTE | 2020-01-09 19:57 | NUR ---
PT BIB [facility] WEARING NOTHING BUT HIS BRIEF. PT UNABLE TO ANSWER QUESTIONS. PT IS SHAKING AND NOT VERBALIZING ANSWERS. PT HAS HX OF SCHIZOPHENIA. piv placed. pt medicated. pt repeats questions asked but doesnt answer. vss. call light in reach
--- NOTE | 2020-01-09 20:24 | NUR ---
PT VANESSA. PT TO CT
--- NOTE | 2020-01-09 20:56 | NUR ---
PT REQUESTED WATER. PT SWALLOWED WITH NO OTHER NEEDS AT THIS TIME. CALL LIGHT IN REACH
--- NOTE | 2020-01-09 22:22 | NUR ---
PT REMOVED PIV. PT AAOX 4 AT THIS TIME. SLOW TO ANSWER QUESTIONS. PA UPDATED AND AT BEDSIDE FOR REASSESSMENT
[2020-01-09 22:45] VITALS: BP 119/76
--- NOTE | 2020-01-09 22:47 | NUR ---
PT ABLE TO TELL US WHERE HE LIVES. PT DENIES SI/HI AND IS ANSWERING QUESTIONS. PT GIVEN CLOTHES TO [facility] AND WILL BE DISCHARGED BY [facility]
--- NOTE | 2020-01-09 23:32 | NUR ---
PT GOT HIMSELF DRESSED AND WAS GIVEN A CAB VOUCHER TO [employer]. PT ROAD TESTED AND IS ABLE TO AMBULATE.
== END 2020-01-09 23:37 | disposition home or self-care (01) ==
LOC: ED 20:00
DX: R41.0 Disorientation, unspecified (principal); I51.7 Cardiomegaly
CPT/HCPCS: 36415; 70450; 71045; 80053; 80307; 85025; 93005; 96374; 99285; J2060

== ENCOUNTER 2020-07-30 15:25 | Emergency (ER) | payer MEDICAID ==
[~2020-07-30] VITALS: Ht 177.8 cm; Wt 63.7 kg
[2020-07-30 16:53] LABS: ALANINE AMINOTRANSFERASE 81 U/L (12-78); ALBUMIN 2.6 g/dL (3.4-5.0); ANION GAP 2 mmol/L (5-15); CALCIUM 8.4 mg/dL (8.5-10.1); CHLORIDE 109 mmol/L (98-107); CREATININE 0.71 mg/dL (0.7-1.3)
[2020-07-30 16:55] LABS: ALKALINE PHOSPHATASE 157 U/L (45-117); BILIRUBIN,TOTAL 0.2 mg/dL (0.2-1.0); TOTAL PROTEIN 7.7 g/dL (6.4-8.2)
[2020-07-30 16:56] LABS: BASOPHILS % (AUTO) 1 % (0-1); EOSINOPHILS % (AUTO) 2 % (1-7); LYMPHOCYTES % (AUTO) 35 % (22-44); MEAN CORPUSCULAR HEMOGLOBIN 34.6 pg (27.5-34.5); MEAN CORPUSCULAR HGB CONC 34.2 g/dL (33.2-36.2); MEAN PLATELET VOLUME 8.6 fL (7.4-10.4); MONOCYTES % (AUTO) 10 % (2-9); NEUTROPHILS % (AUTO) 53 % (42-75); PLATELET COUNT 116 x10^3/uL (130-400); RED BLOOD COUNT 4.21 x10^6/uL (4.38-5.82); RED CELL DISTRIBUTION WIDTH 12.8 % (9.4-14.8)
[2020-07-30 17:07] LABS: MICROSCOPIC INDICATED
--- NOTE | 2020-07-30 17:07 | NUR ---
[facility] OFFICE, ON-CALL GUARDIAN'S PHONE NUMBER IS .
[2020-07-30 17:23] LABS: MD SCAN
[2020-07-30] MEDS ORDERED: CEFTRIAXONE PMX 1GM/50ML 50 ML IV ONE (17:30)
[2020-07-30] MEDS ORDERED: CEFTRIAXONE PMX 1GM/50ML 50 ML ONE (17:46)
--- NOTE | 2020-07-30 17:58 | NUR ---
PT MEDICATE PER MAR.
--- NOTE | 2020-07-30 18:08 | NUR ---
CALL TO [facility] OFFICE, SPOKE WITH SAMIR NIETO ABOUT PLAN OF CARE, PER SAMIR LUI SUMMARY TO BE FAXED UPON DISCHARGE TO [phone].
--- NOTE | 2020-07-30 18:35 | NUR ---
DISCHARGE SUMMARY FAXED TO [facility] OFFICE. CALL TO [facility], REPORT GIVEN TO NURSE AT FACILITY.
[2020-07-30 18:47] VITALS: BP 110/70
--- NOTE | 2020-07-30 19:11 | NUR ---
[facility]
== END 2020-07-30 19:15 | disposition home or self-care (01) ==
LOC: ED 19:02
DX: N30.00 Acute cystitis without hematuria (principal); F20.9 Schizophrenia, unspecified; G93.41 Metabolic encephalopathy
CPT/HCPCS: 36415; 71045; 80053; 81001; 85025; 87077; 87086; 96365; 99284; J0696; 87186